=== PATIENT | male | born 1960 | race African-American/Black ===

== ENCOUNTER 2023-04-13 07:50 | Emergency (ER) | payer OTHER ==
[~2023-04-13] VITALS: Ht 162.6 cm; Wt 81.0 kg
[2023-04-13 08:00] VITALS: TEMP 98.4; O2SAT 98
[2023-04-13 14:28] VITALS: BP 152/76; PULSE 67; RESP 16
== END 2023-04-13 14:30 | disposition home or self-care (01) ==
LOC: ER 07:50
DX: T82.838A Hemorrhage due to vascular prosthetic devices, implants and grafts, initial encounter (principal); E11.22 Type 2 diabetes mellitus with diabetic chronic kidney disease; I12.0 Hypertensive chronic kidney disease with stage 5 chronic kidney disease or end stage renal disease; N18.6 End stage renal disease; E78.00 Pure hypercholesterolemia, unspecified
CPT/HCPCS: 99283